=== PATIENT | male | born 1955 | race Caucasian/White ===

== ENCOUNTER 2016-10-13 06:57 | Day surgery (SDC) | payer BC ==
[2016-10-09 09:28] VITALS: BMI 27.9
[~2016-10-13 06:57] MED LIST: LACTATED RINGERS 1,000 ML IV SCH
[2016-10-13] MEDS ORDERED: LACTATED RINGERS 1,000 ML IV ONE (07:18)
[2016-10-13 07:20] VITALS: TEMP 97.1
[2016-10-13] MEDS ORDERED: LIDOCAINE 1% INJ 10MG/ML (20 ML MDV) ONE (07:48)
[2016-10-13] MEDS ORDERED: fentaNYL (PF) 50 MCG/ML 2 ML AMP ONE (07:48)
[2016-10-13] MEDS ORDERED: PROPOFOL 10 MG/ML 20 ML VIAL IV ONE (07:48)
[2016-10-13] MEDS ORDERED: MIDAZOLAM 2 MG/2 ML VIAL ONE (07:48)
--- NOTE | 2016-10-13 08:27 | P.PCN ---
Date of Procedure: 10/13/16 Procedure(s) Performed: Procedure: Total colonoscopy. Preoperative diagnosis: Screening for neoplasia, patient has history of polyps. Postoperative diagnosis: Exam within normal limits. Preparation: HalfLytely prep. Sedation: Was provided by anesthesia. Reflux clinical history: The patient is a 61-year-old male who is scheduled for this evaluation for screening for neoplasia because of history of polyps. His last exam was around 5 years ago. The patient has no abdominal complaints, bleeding or anemia. Procedure: With the patient on his left lateral decubitus position and after informed consent and adequate sedation, the perianal area was inspected and it did not show any fissures or fistulas. There were no masses felt on digital rectal examination. The Olympus CFQ 160L video colonoscope was then inserted in the rectum in the usual fashion and advanced to the cecum. The mucosa appeared healthy. No polyps or tumors were seen or any obvious diverticular disease. I retroflexed the endoscope in the rectum before the endoscope was withdrawn. The patient tolerated the procedure well. Plan: The patient was reassured. He will follow up with you as planned and I recommended repeat exam in 5 years.
[2016-10-13 08:28] VITALS: RESP 16
[2016-10-13 08:31] LABS: Glucose,Whole Blood 121 mg/dL (75-99)
[2016-10-13 08:58] VITALS: BP 101/72; PULSE 51
== END 2016-10-13 09:31 | disposition home or self-care (01) ==
LOC: ORWHC2ENDO 06:57
DX: Z12.11 Encounter for screening for malignant neoplasm of colon (principal); Z86.010 Personal history of colon polyps; N40.0 Benign prostatic hyperplasia without lower urinary tract symptoms; E78.5 Hyperlipidemia, unspecified; G47.33 Obstructive sleep apnea (adult) (pediatric); I49.9 Cardiac arrhythmia, unspecified; Z79.01 Long term (current) use of anticoagulants; Z79.899 Other long term (current) drug therapy
CPT/HCPCS: J2250; J2001; J3010; J2704; G0105

== ENCOUNTER 2019-04-20 10:21 | Emergency (ER) | payer BC ==
[2019-04-20 11:24] LABS: Basophils # (A) 0.1 k/uL (0-0.2); Basophils % (A) 1 %; Eosinophils # (A) 0.2 k/uL (0-0.7); Eosinophils % (A) 4 %; HCT 46.3 % (39.0-53.0); HGB 16.4 gm/dL (13.0-17.5); Lymphocytes # (A) 1.6 k/uL (1.0-4.8); Lymphocytes % (A) 29 %; MCH 30.5 pg (25.0-35.0); MCHC 35.3 g/dL (31.0-37.0); MCV 86.4 fL (80.0-100.0); Mean Platelet Volume 5.6; Monocytes # (A) 0.3 k/uL (0-1.0); Monocytes % (A) 6 %; Neutrophils # (A) 3.2 k/uL (1.3-7.7); Neutrophils % (A) 58 %; Platelet Count 283 k/uL (150-450); RBC 5.36 m/uL (4.30-5.90); RDW 12.1 % (11.5-15.5); WBC 5.5 k/uL (3.8-10.6)
--- NOTE | 2019-04-20 11:33 | ED ---
Recheck HPI - General Source: patient, RN notes reviewed Mode of arrival: wheelchair Limitations: no limitations <Tree Anguiano - Last Filed: 04/20/19 14:16> <Shannan Michelle - Last Filed: 04/21/19 12:27> - General Chief Complaint: Recheck/Abnormal Lab/Rx Stated Complaint: AFib Time Seen by Provider: 04/20/19 10:39 - History of Present Illness Initial Comments: This a 64-year-old male presents emergency Department from PCPs office chief complaint A. fib, dizziness. Patient states states been having some increasing dizziness states it's only with positional changes. Patient states that he is currently just gives with a usually resolves if he goes slowly. Patient states that he went to his PCPs office for a flu shot and told provider about his symptoms and which he didn't EKG. Patient found to be in A. fib with a heart rate of 103. Patient does have a history of A. fib but states that he has not been in A. fib for a long period of time. Patient states that on his last cardiology evaluation he was not in it though he still takes metoprolol and Eliquis. Patient states that at rest he is not having symptoms. He doesn't that he's had intermittent headaches. No chest pain no palpitations. (Tree Anguiano) - Related Data Home Medications Medication Instructions Recorded Confirmed Apixaban [Eliquis] 5 mg PO BID 10/09/16 04/20/19 Atorvastatin [Lipitor] 40 mg PO HS 10/09/16 04/20/19 Metoprolol Tartrate [Lopressor] 12.5 mg PO QAM 10/09/16 04/20/19 Tamsulosin [Flomax] 0.4 mg PO BID 10/09/16 04/20/19 Allergies Allergy/AdvReac Type Severity Reaction Status Date / Time No Known Allergies Allergy Verified 04/20/19 10:53 Review of Systems ROS Other: All systems not noted in ROS Statement are negative. <Tree Anguiano - Last Filed: 04/20/19 14:16> ROS Other: All systems not noted in ROS Statement are negative. <Shannan Michelle - Last Filed: 04/21/19 12:27> ROS Statement: Those systems with pertinent positive or pertinent negative responses have been documented in the HPI. Past Medical History Past Medical History: Atrial Fibrillation, Chest Pain / Angina, Hyperlipidemia, Prostate Disorder, Sleep Apnea/CPAP/BIPAP Additional Past Medical History / Comment(s): irregular heartbeat, no cpap used, hx paralytic ileus, "borderline diabetic"-diet control, History of Any Multi-Drug Resistant Organisms: None Reported Past Surgical History: Orthopedic Surgery Additional Past Surgical History / Comment(s): arthrsocopy rt knee, lasik eye surgery jeremías, cataract jeremías, left knee arthroscopy, jeremías shoulder surgery, Past Anesthesia/Blood Transfusion Reactions: No Reported Reaction Past Psychological History: No Psychological Hx Reported Smoking Status: Never smoker Past Alcohol Use History: Occasional Past Drug Use History: None Reported - Past Family History Father Family Medical History: Cancer <Tree Anguiano - Last Filed: 04/20/19 14:16> General Exam Limitations: no limitations General appearance: alert, in no apparent distress Head exam: Present: atraumatic, normocephalic, normal inspection Eye exam: Present: normal appearance, PERRL, EOMI. Absent: scleral icterus, conjunctival injection, periorbital swelling ENT exam: Present: normal exam, normal oropharynx, mucous membranes moist Neck exam: Present: normal inspection, full ROM. Absent: tenderness, meningismus, lymphadenopathy Respiratory exam: Present: normal lung sounds bilaterally. Absent: respiratory distress, wheezes, rales, rhonchi, stridor Cardiovascular Exam: Present: normal rhythm, irregular rhythm, normal heart sounds. Absent: regular rate, tachycardia, systolic murmur, diastolic murmur, rubs, gallop, clicks GI/Abdominal exam: Present: soft, normal bowel sounds. Absent: distended, tenderness, guarding, rebound, rigid Skin exam: Present: warm, dry, intact, normal color. Absent: rash <Tree Anguiano - Last Filed: 04/20/19 14:16> Course Vital Signs 04/20/19 04/20/19 04/20/19 10:32 11:20 11:30 Temperature 98.1 F Pulse Rate 99 106 H Respiratory 18 16 Rate Blood Pressure 94/62 121/72 121/72 O2 Sat by Pulse 95 94 L Oximetry 04/20/19 04/20/19 04/20/19 11:40 11:50 12:00 Temperature Pulse Rate 96 103 H 95 Respiratory 16 12 15 Rate Blood Pressure 104/79 104/79 104/79 O2 Sat by Pulse 94 L 96 95 Oximetry 04/20/19 04/20/19 04/20/19 12:10 12:20 12:30 Temperature Pulse Rate 96 105 H 98 Respiratory 5 L 5 L 20 Rate Blood Pressure 96/71 96/71 96/71 O2 Sat by Pulse 97 97 94 L Oximetry 04/20/19 04/20/19 04/20/19 13:00 13:30 14:00 Temperature Pulse Rate 86 96 98 Respiratory 16 17 16 Rate Blood Pressure 114/79 108/82 111/80 O2 Sat by Pulse 96 95 96 Oximetry 04/20/19 14:27 Temperature 98.6 F Pulse Rate Respiratory Rate Blood Pressure O2 Sat by Pulse Oximetry Medical Decision Making - Lab Data Result diagrams: 04/20/19 11:14 04/20/19 11:14 <Tree Anguiano - Last Filed: 04/20/19 14:16> - Lab Data Result diagrams: 04/20/19 11:14 04/20/19 11:14 <Shannan Michelle - Last Filed: 04/21/19 12:27> - Medical Decision Making Patient workup including labs, CT, EKG and CT interstitial concerns for right MCA aneurysm CTA was obtained I did discuss the case with radiologist who recommended cahto of Fernando this was ordered. Patient does have a swelling isn't 3-4 mm with no episodes of ruptured this is not causing his dizziness. Patient advised to follow-up with his PCP to referred to a neurosurgeon. 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 Patient is in A. fib and is anticoagulated and rate controlled. Patient will follow-up with his double needle stitcher return parameters discussed. (Tree Anguiano) I was available for consultation in the emergency department. The history and physical exam were done by the midlevel provider. I was consulted for this patients care. I reviewed the case with the midlevel provider and based on their presentation of the patient, I agree with the assessment, medical decision making and plan of care as documented. Chart was dictated using [employer] dictation software. Attempts were made to correct any dictation errors however some typographical errors may persist. (Shannan Michelle) - Lab Data Lab Results 04/20/19 04/20/19 04/20/19 Range/Units 11:14 11:14 11:14 WBC 5.5 (3.8-10.6) k/uL RBC 5.36 (4.30-5.90) m/uL Hgb 16.4 (13.0-17.5) gm/dL Hct 46.3 (39.0-53.0) % MCV 86.4 (80.0-100.0) fL MCH 30.5 (25.0-35.0) pg MCHC 35.3 (31.0-37.0) g/dL RDW 12.1 (11.5-15.5) % Plt Count 283 (150-450) k/uL Neutrophils % 58 % Lymphocytes % 29 % Monocytes % 6 % Eosinophils % 4 % Basophils % 1 % Neutrophils # 3.2 (1.3-7.7) k/uL Lymphocytes # 1.6 (1.0-4.8) k/uL Monocytes # 0.3 (0-1.0) k/uL Eosinophils # 0.2 (0-0.7) k/uL Basophils # 0.1 (0-0.2) k/uL Sodium 140 (137-145) mmol/L Potassium 4.3 (3.5-5.1) mmol/L Chloride 106 (98-107) mmol/L Carbon Dioxide 25 (22-30) mmol/L Anion Gap 9 mmol/L BUN 16 (9-20) mg/dL Creatinine 0.87 (0.66-1.25) mg/dL Est GFR (CKD-EPI)AfAm >90 (>60 ml/min/1.73 sqM) Est GFR (CKD-EPI)NonAf >90 (>60 ml/min/1.73 sqM) Glucose 205 H (74-99) mg/dL Calcium 9.8 (8.4-10.2) mg/dL Total Bilirubin 0.7 (0.2-1.3) mg/dL AST 23 (17-59) U/L ALT 31 (21-72) U/L Alkaline Phosphatase 64 (38-126) U/L Troponin I <0.012 (0.000-0.034) ng/mL Total Protein 7.2 (6.3-8.2) g/dL Albumin 4.2 (3.5-5.0) g/dL Disposition Is patient prescribed a controlled substance at d/c from ED?: No Time of Disposition: 14:17 <Tree Anguiano - Last Filed: 04/20/19 14:16> <Shannan Michelle - Last Filed: 04/21/19 12:27> Clinical Impression: Dizziness, Right internal carotid artery aneurysm, Afib Disposition: HOME SELF-CARE Condition: Stable Instructions (If sedation given, give patient instructions): Dizziness (ED) Additional Instructions: Follow-up with PCP and double needle stitcher. Please return to the Emergency Department if symptoms worsen or any other concerns. Referrals: Tierney Manley DO [Primary Care Provider] - 1-2 days
[2019-04-20 11:46] LABS: ALT 31 U/L (21-72); AST 23 U/L (17-59); African American GFR (CKD) >90 (>60 ml/min/1.73 sqM); Albumin 4.2 g/dL (3.5-5.0); Alkaline Phosphatase 64 U/L (38-126); Anion Gap 9 mmol/L; Blood Urea Nitrogen 16 mg/dL (9-20); Calcium 9.8 mg/dL (8.4-10.2); Carbon Dioxide 25 mmol/L (22-30); Chloride 106 mmol/L (98-107); Glucose 205 mg/dL (74-99); Potassium 4.3 mmol/L (3.5-5.1); Sodium 140 mmol/L (137-145); Total Bilirubin 0.7 mg/dL (0.2-1.3); Total Protein 7.2 g/dL (6.3-8.2)
--- NOTE | 2019-04-20 11:49 | CT ---
EXAMINATION TYPE: CT brain wo con DATE OF EXAM: 04/20/2019 COMPARISON: None HISTORY: A-fib, Dizziness CT DLP: 1095.4 mGycm Automated exposure control for dose reduction was used. TECHNIQUE: CT scan of the head is performed without contrast. FINDINGS: There is no acute intracranial hemorrhage or midline shift identified. There is diffuse v entricular and sulcal prominence consistent with diffuse age-related cerebral atrophy. There are a f ew patchy areas of hypoattenuation in the periventricular white matter most commonly related to chron ic small vessel ischemic change. Prominence of the right ICA terminus is seen on image 18, slightly h yperdense. This measures 5 mm. CTA brain as recommended for further evaluation. Atherosclerosis is no kanwal of the intracranial vasculature. The globes are intact and the visualized sinuses are clear. IMPRESSION: 1. Slight hyperdensity of a prominent ICA terminus measuring 5 mm on the right. CT is recommended to evaluate for aneurysm or and/or thrombus in this patient with atrial fibrillation. 2. No acute intracranial hemorrhage or midline shift.
--- NOTE | 2019-04-20 13:57 | CT ---
EXAMINATION TYPE: CT angio head neck DATE OF EXAM: 04/20/2019 HISTORY: Abnormal w/o scan. COMPARISON: CT brain same date CT DLP: 529.6 mGycm. Automated Exposure Control for Dose Reduction was Utilized. TECHNIQUE: CTA scan of the neck is performed with IV Contrast, patient injected with 65 mL of Isovue 370, axial images are obtained, coronal and sagittal reformatted images are reviewed. Three-D recons tructed images are created on an independent workstation and reviewed. FINDINGS: Carotid/Vascular Structures: At the level of abnormality described on prior CT brain there is a small aneurysm present measuring approximately 3 to 4 mm in size at the level of the internal carotid gareth ry terminal segment on the right. Vertebral arteries are patent. Transverse aorta, innominate, left and right common carotid, left and right subclavian arteries are p atent. Common carotid, internal and external carotid arteries are patent, there is no evident internal carot id artery stenosis. No evident dissection. Other: Degenerative disc changes are present in the visualized spine. There is multilevel foraminal e ncroachment. IMPRESSION: Right internal carotid artery aneurysm is noted.
[2019-04-20 14:09] VITALS: BP 111/80; PULSE 98; RESP 16
[2019-04-20 14:28] VITALS: TEMP 98.6
== END 2019-04-20 14:28 | disposition home or self-care (01) ==
LOC: EC 10:21
DX: I48.91 Unspecified atrial fibrillation (principal); I67.1 Cerebral aneurysm, nonruptured; E78.5 Hyperlipidemia, unspecified; I25.2 Old myocardial infarction; N42.9 Disorder of prostate, unspecified; Z79.01 Long term (current) use of anticoagulants; Z79.899 Other long term (current) drug therapy
CPT/HCPCS: 36415; 93005; 80053; 84484; 85025; 70496; 70450; 70498; 99284; Q9967

== ENCOUNTER 2019-09-15 07:09 | Day surgery (SDC) | payer BC ==
[2019-09-13 09:01] VITALS: BMI 29.0
[~2019-09-15 07:09] MED LIST changes: +LIDOCAINE 1% (10MG/ML) FOR IV START INTRADERMA PRN
[2019-09-15 07:27] VITALS: TEMP 97.4
[2019-09-15] MEDS ORDERED: LACTATED RINGERS 1,000 ML IV ONE ×2 (07:29)
[2019-09-15] MEDS ORDERED: PROPOFOL 10 MG/ML 20 ML VIAL IV ONE (07:35)
[2019-09-15] MEDS ORDERED: LIDOCAINE 1% INJ 10MG/ML (20 ML MDV) ONE (07:35)
--- NOTE | 2019-09-15 08:01 | P.PCN ---
Date of Procedure: 09/15/19 Description of Procedure: BRIEF HISTORY: Patient is a 64-year-old male presenting for outpatient evaluation with EGD for symptoms of dysphagia. Patient reports intermittent dysphagia and frequent episodes of hiccups which can be triggered by breads and other foods. PROCEDURE PERFORMED: Esophagogastroduodenoscopy with biopsy. PREOPERATIVE DIAGNOSIS: Dysphagia. ESTIMATED BLOOD LOSS: Minimal. IV sedation per anesthesia. PROCEDURE: After informed consent was obtained, the patient was brought into the endoscopy unit. IV sedation was administered by Anesthesia under continuous monitoring. Initially the Olympus GIF-190 video endoscope was inserted into the mouth. Esophagus intubated without any difficulty. It was gradually advanced into the stomach and duodenum and carefully examined. The bulb and the second part of the duodenum appeared normal, with biopsies taken. The scope at this time was withdrawn to the stomach, adequately insufflated with air, and upon careful examination, mucosa of the antrum, body, cardia and the fundus appeared normal, except for some mild scattered erythema in the antrum and body suggestive of mild gastritis with biopsies taken. The scope was then withdrawn into the esophagus. The GE junction was located at 43 cm from the incisors and appeared normal with biopsies taken. The esophagus appeared normal. There were no erosions or ulcerations seen and the patient tolerated the procedure well. IMPRESSION: 1. Mild gastritis antrum body, biopsied. 2. Biopsies of the duodenum and GE junction. RECOMMENDATIONS: The findings of this examination were discussed with the patient and his . Okay to resume diet. Okay to resume medications. Await pathology from biopsies. Follow up with primary care physician as previously scheduled.
[2019-09-15 08:12] VITALS: RESP 15
[2019-09-15 08:43] LABS: Glucose,Whole Blood 124 mg/dL (75-99)
[2019-09-15 09:13] VITALS: BP 125/74; PULSE 66
== END 2019-09-15 09:00 | disposition home or self-care (01) ==
LOC: ORWHC2ENDO 07:09
PROVIDERS: ATTEND Internal Medicine
DX: R06.6 Hiccough (principal); K29.50 Unspecified chronic gastritis without bleeding; R13.10 Dysphagia, unspecified; I48.91 Unspecified atrial fibrillation; I10 Essential (primary) hypertension; G47.33 Obstructive sleep apnea (adult) (pediatric); Z79.01 Long term (current) use of anticoagulants; Z79.899 Other long term (current) drug therapy
CPT/HCPCS: 88305; 43239; J2001; J2704

== ENCOUNTER → 2020-11-19 | Outpatient (CLI) | payer BC ==
--- NOTE | 2020-11-19 12:32 | FL ---
Modified barium swallow. HISTORY: Dysphagia. Modified barium swallow was performed with the department of speech pathology. The patient was prese nted with various consistencies of barium. There is no evidence for aspiration or penetration. Full report is to follow from the department of speech pathology. Impression: Normal study.
== END | disposition home or self-care (01) ==
LOC: RADFLMAIN 10:51
PROVIDERS: ATTEND Nurse Practitioner
DX: R13.10 Dysphagia, unspecified (principal)
CPT/HCPCS: 74230

== ENCOUNTER 2022-01-31 09:16 | Day surgery (SDC) | payer BC ==
[2022-01-30 14:31] VITALS: BMI 27.0
[2022-01-31 09:43] VITALS: TEMP 97.4
[2022-01-31 09:44] LABS: Glucose,Whole Blood 122 mg/dL (70-110)
[2022-01-31] MEDS ORDERED: LACTATED RINGERS 1,000 ML IV ONE ×2 (09:46)
[2022-01-31] MEDS ORDERED: PROPOFOL 10 MG/ML 20 ML VIAL IV ONE (10:18)
[2022-01-31] MEDS ORDERED: LIDOCAINE 2% INJ 20 MG/ML (2 ML VIAL) ONE (10:18)
--- NOTE | 2022-01-31 10:34 | P.PCN ---
Date of Procedure: 01/31/22 Procedure(s) Performed: BRIEF HISTORY: Patient is a 66-year-old pleasant white male scheduled for an elective colonoscopy as a part of a history of colon polyps. Last colonoscopy was 5 years ago. PROCEDURE PERFORMED: Colonoscopy. PREOPERATIVE DIAGNOSIS: History of colon polyps. IV sedation per Anesthesia. PROCEDURE: After informed consent was obtained, the patient, was brought into the endoscopy unit. IV sedation was administered by Anesthesia under continuous monitoring. Digital rectal examination was normal. Initially the Olympus CF-160 flexible video colonoscope was then inserted in the rectum, gradually advanced into the cecum without any difficulty. Careful examination was performed as the scope was gradually being withdrawn. Ileocecal valve and the appendiceal orifice were visualized and appeared normal. Prep was excellent. Mucosa of the cecum, ascending colon, transverse colon, descending colon, sigmoid colon, and rectum appeared normal. Retroflexion was performed in the rectum and no lesions were seen. The patient tolerated the procedure well. IMPRESSION: Normal-appearing colon from rectum to cecum with no evidence of colorectal neoplasia . Scattered sigmoid diverticulosis RECOMMENDATIONS: Findings of this examination were discussed with the patient as well as his family. He was advised to have a repeat screening colonoscopy in 10 years..
[2022-01-31 10:52] VITALS: BP 117/75; PULSE 50; RESP 16
== END 2022-01-31 11:29 | disposition home or self-care (01) ==
LOC: ORWHC2ENDO 09:16
PROVIDERS: ATTEND Internal Medicine Gastroenterology
DX: Z12.11 Encounter for screening for malignant neoplasm of colon (principal); K57.30 Diverticulosis of large intestine without perforation or abscess without bleeding; Z86.010 Personal history of colon polyps; I10 Essential (primary) hypertension; I48.91 Unspecified atrial fibrillation; E78.5 Hyperlipidemia, unspecified; G47.33 Obstructive sleep apnea (adult) (pediatric); E11.9 Type 2 diabetes mellitus without complications; M19.90 Unspecified osteoarthritis, unspecified site; K21.9 Gastro-esophageal reflux disease without esophagitis; I67.1 Cerebral aneurysm, nonruptured; Z79.84 Long term (current) use of oral hypoglycemic drugs; Z79.01 Long term (current) use of anticoagulants; Z79.899 Other long term (current) drug therapy
CPT/HCPCS: J2704; J2001; G0121; 45378

== ENCOUNTER → 2023-03-24 | Outpatient (CLI) | payer BC ==
[2023-03-24 16:25] LABS: African American GFR (CKD) >90 (>60 ml/min/1.73 sqM); Blood Urea Nitrogen 16 mg/dL (9-20); Non-African American GFR(CKD) >90 (>60 ml/min/1.73 sqM)
--- NOTE | 2023-03-25 09:36 | CT ---
EXAMINATION TYPE: CT chest w con DATE OF EXAM: 03/24/2023 COMPARISON: 09/10/2022 HISTORY: Pulmonary fibrosis, difficulty breathing since pneumonia 07/03 CT DLP: 418.9 mGycm Automated exposure control for dose reduction was used. CONTRAST: CT scan of the chest is performed with IV Contrast, patient injected with 100 cc mL of Isovue 300. FINDINGS: LUNGS: Stable granuloma superior segment left lower lobe. There is mild subpleural fibrosis seen at t he lung bases. No evidence of bronchiectasis or infiltrate. No pleural effusion or volume loss. MEDIASTINUM: There are no greater than 1 cm hilar or mediastinal lymph nodes. No pericardial effusi on is seen. Thoracic aorta is of normal caliber. The heart is not enlarged. UPPER ABDOMEN: No significant abnormality appreciated. OTHER: No additional significant abnormality is seen. IMPRESSION: 1 nonspecific basilar subpleural fibrosis. 2. Calcified granuloma left midlung zone.
== END | disposition home or self-care (01) ==
LOC: RADCTMAIN 15:30
PROVIDERS: ATTEND Internal Medicine Critical Care Medicine
DX: J84.10 Pulmonary fibrosis, unspecified (principal); J94.1 Fibrothorax
CPT/HCPCS: 82565; 84520; 71260; 36415; Q9967

== ENCOUNTER 2023-05-15 22:51 | Emergency (ER) | payer BC ==
[2023-05-15 23:14] VITALS: TEMP 98.2
[2023-05-16] MEDS ORDERED: AMPICILLIN-SULBACTAM 3 GM in SODIUM CHLORIDE 0.9% 100 ML IVPB STA (00:26)
[2023-05-16] MEDS ORDERED: HYDROmorphone 1 MG/ML 1 ML SYRINGE IVP STA ×2 (00:26→02:58)
[2023-05-16] MEDS ORDERED: GENTAMICIN 80 MG in SODIUM CHLORIDE 0.9% 100 ML IVPB ONE (00:51)
[2023-05-16] MEDS ORDERED: LIDOCAINE 1% INJ 10MG/ML (20 ML MDV) SQ ONE (00:55)
--- NOTE | 2023-05-16 01:24 | XR ---
EXAM: XR Left Hand Complete, 3 or More Views CLINICAL HISTORY: ITS.REASON XR Reason: 2nd finger injury TECHNIQUE: Frontal, lateral and oblique views of the left hand. COMPARISON: No previous studies. FINDINGS: Bones/joints: Rotary dislocation of the distal phalanx of the left index finger at the PIP joint. Mild to moderate osteoarthritic changes at the DIP and PIP joints. Moderate to severe osteoarthritic changes at the base of the left first carpal. No acute fracture. Soft tissues: A 0.2 cm linear foreign body within the soft tissues at the palmar aspect of the distal phalanx of the left fifth digit which requires clinical correlation. Extensive soft tissue swelling about the left index finger. Differential etiologies include cellulitis. Osteomyelitis cannot be excluded. IMPRESSION: 1. Rotary dislocation of the distal phalanx of the left index finger at the DIP joint. 2. Extensive soft tissue swelling about the left index finger. 3. Differential etiologies include bruising edema related to injury versus cellulitis. 4. Correlation is advised. 5. MRI imaging is advised to follow. 6. Small metallic foreign body within the soft tissues about the distal thighs of the left fifth digit. 7. Osteoarthritic changes.
--- NOTE | 2023-05-16 02:03 | XR ---
EXAM: XR Left Fingers, 2 or More Views CLINICAL HISTORY: ITS.REASON XR Reason: postreduction TECHNIQUE: Frontal, lateral and oblique views of the fingers of the left hand. COMPARISON: Earlier study of 05/15/2023. FINDINGS: Bones/joints: Rotary dislocation at the DIP joint of the left index finger has improved in position. Bony fragment is noted at the dorsal aspect the PIP joint left index finger suggestive of an avulsion injury, possibly acute. Soft tissues: Extensive soft tissue swelling about the left index finger. No radiopaque foreign body. IMPRESSION: 1. Improved anatomic position at the DIP joint left index finger. 2. Dorsal osseous fragment at the DIP joint worrisome for an acute/subacute avulsion injury. 3. Extensive soft tissue swelling about the left index finger. 4. MRI imaging is advised to follow-up for further correlation.
[2023-05-16] MEDS ORDERED: BACITRACIN OINT 1 EACH PACKET TOPICAL ONE (02:40)
[2023-05-16] MEDS ORDERED: DIPH,PERTUS(ACELL)TETVAC-LF 0.5 ML VIAL IM ONE (03:05)
--- NOTE | 2023-05-16 03:13 | ED ---
General Adult HPI - General Chief complaint: Extremity Injury, Upper Stated complaint: left hand injury Time Seen by Provider: 05/15/23 23:29 Source: patient Mode of arrival: ambulatory Limitations: no limitations - History of Present Illness Initial comments: 68-year-old male presenting to the ED with a chief complaint of finger injury. Patient states that he got his left second finger stuck between a magdi and a belt. No other injuries at this time. Tetanus within the last 10 years. No other complaints. - Related Data Home Medications Medication Instructions Recorded Confirmed Apixaban [Eliquis] 5 mg PO BID 10/09/16 01/31/22 Metoprolol Tartrate [Lopressor] 12.5 mg PO QAM 10/09/16 01/31/22 Tamsulosin [Flomax] 0.4 mg PO BID 10/09/16 01/31/22 Atorvastatin [Lipitor] 20 mg PO HS 09/13/19 01/31/22 Dutasteride [Avodart] 0.5 mg PO DAILY 01/30/22 01/31/22 Omeprazole [PriLOSEC] 20 mg PO BID 01/30/22 01/31/22 metFORMIN HCL 500 mg PO QAM 01/30/22 01/31/22 Previous Rx's Medication Instructions Recorded Cephalexin [Keflex] 500 mg PO Q6HR 7 Days #28 cap 05/16/23 HYDROcodone/APAP 10-325MG [[place] 1 tab PO Q6HR PRN 3 Days #12 tab 05/16/23 10-325] Allergies Allergy/AdvReac Type Severity Reaction Status Date / Time No Known Allergies Allergy Verified 05/15/23 22:59 Review of Systems ROS Statement: Those systems with pertinent positive or pertinent negative responses have been documented in the HPI. ROS Other: All systems not noted in ROS Statement are negative. Past Medical History Past Medical History: Atrial Fibrillation, Diabetes Mellitus, GERD/Reflux, Hyperlipidemia, Hypertension, Osteoarthritis (OA), Prostate Disorder, Sleep Apnea/CPAP/BIPAP Additional Past Medical History / Comment(s): no cpap used, hx paralytic ileus, , dx brain aneurysm, "borderline diabetic", History of Any Multi-Drug Resistant Organisms: None Reported Past Surgical History: Orthopedic Surgery Additional Past Surgical History / Comment(s): lasik eye surgery jeremías, cataract jeremías,jeremías knee arthroscopy, jeremías shoulder surgery, Past Anesthesia/Blood Transfusion Reactions: No Reported Reaction Past Psychological History: No Psychological Hx Reported Smoking Status: Never smoker Past Alcohol Use History: Occasional Past Drug Use History: None Reported - Past Family History Father Family Medical History: Cancer Additional Family Medical History / Comment(s): leukemia Mother Family Medical History: Deep Vein Thrombosis (DVT) General Exam Limitations: no limitations General appearance: alert, in no apparent distress Neck exam: Present: normal inspection Respiratory exam: Present: normal lung sounds bilaterally Cardiovascular Exam: Present: regular rate, normal rhythm GI/Abdominal exam: Present: soft Extremities exam: Present: other (left fifth finger has good sensation and good capillary refill distal. Obvious deformity at the tip of this finger. Avulsion of the skin overlying the DIP and PIP joint. Difficulty with flexing the finger) Course Vital Signs 05/15/23 22:59 Temperature 98.2 F Pulse Rate 69 Respiratory 18 Rate Blood Pressure 172/89 O2 Sat by Pulse 96 Oximetry Procedures - Laceration Laceration #1 Indication: laceration Site: upper extremity Size (cm): 7 Description: avulsion, irregular, contaminated Depth: involves muscle layer, involves tendon Anesthetic Used: lidocaine 1% Anesthesia Technique: local infiltration, nerve block Amount (mls): 5 Pre-repair: wound explored, irrigated extensively, extreme cleansing Type of Sutures: nylon Size of Sutures: 4-0 Number of Sutures: 15 Technique: simple, interrupted Patient Tolerated Procedure: well, no complications - Nerve Block Local Anesthetic Used: Lidocaine 1% Amount of anesthesia used: 3 Side: left Nerve Blocks: digital Patient Tolerated Procedure: well, no complications - Orthopedic Joint Reduction Joint #1 Side: left Analgesia: digital block Amount of Anesthetic Used (mLs): 3 Technique Used: direct manipulation Post-Reduction Neuro Exam: intact Post-Reduction Vascular Exam: intact Post Reduction X-Ray Obtained: Yes Post Reduction X-Ray Results: reduced Splint Applied: Yes Patient Tolerated Procedure: well, no complications Medical Decision Making - Medical Decision Making Was pt. sent in by a medical professional or institution (SHIVAM [place], VALVE AND REGULATOR REPAIRER, urgent care, hospital, or [facility]...) When possible be specific @ -No Did you speak to anyone other than the patient for history (EMS, parent, family, police, friend...)? What history was obtained from this source @ -No Did you review nursing and triage notes (agree or disagree)? Why? @ -I reviewed and agree with nursing and triage notes Were old charts reviewed (outside hosp., previous admission, EMS record, old EKG, old radiological studies, urgent care reports/EKG's, [facility] records)? Report findings @ -No old charts were reviewed Differential Diagnosis (chest pain, altered mental status, abdominal pain women, abdominal pain men, vaginal bleeding, weakness, fever, dyspnea, syncope, headache, dizziness, GI bleed, back pain, seizure, CVA, palpatations, mental health, musculoskeletal)? @ -Differential Musculoskeletal Muscular strain, contusion, ligament sprain, fracture, arthritis, septic arthritis, bursitis, cellulitis, muscle spasm, nerve compression, DVT, arterial occlusion, herpes zoster, electrolyte abnormality, tumor.... This is not meant to be in all inclusive list EKG interpreted by me (3pts min.). @ -None X-rays interpreted by me (1pt min.). @ -x-ray of the hand interpreted by me showing E dislocation of the distal phalanx of the left index finger at the DIP with extensive soft tissue swelling. Postreduction x-ray of the finger still shows a rotary dislocation however improved anatomic position compared to prior. Also a dorsal osseous fragment at the DIP joint. No other attempt at reduction was made however do feel that there is a fracture on seen by imaging at the distal finger at this time. Finger does appear more reduced in prior at this time. CT interpreted by me (1pt min.). @ -None done U/S interpreted by me (1pt. min.). @ -None done What testing was considered but not performed or refused? (CT, X-rays, U/S, labs)? Why? @ -None What meds were considered but not given or refused? Why? @ -None Did you discuss the management of the patient with other professionals (professionals i.e. , PA, VALVE AND REGULATOR REPAIRER, lab, RT, psych nurse, social group worker, precision dancer, teacher, donor relations officer, family caseworker)? Give summary @ -Spoke to Dr. Ramos of orthopedics. in agreement with IV antibiotics. At this time, recommends reduction@DIP with loose approximation of skin. Also updated tetanus and discharging patient home with antibiotics. Was smoking cessation discussed for >3mins.? @ -No Was critical care preformed (if so, how long)? @ -No Were there social determinants of health that impacted care today? How? (Homelessness, low income, unemployed, alcoholism, drug addiction, transportation, low edu. Level, literacy, decrease access to med. care, [facility], rehab)? @ -No Was there de-escalation of care discussed even if they declined (Discuss DNR or withdrawal of care, Hospice)? DNR status @ -No What co-morbidities impacted this encounter? (DM, HTN, Smoking, COPD, CAD, Cancer, CVA, ARF, Chemo, Hep., AIDS, mental health diagnosis, sleep apnea, morbid obesity)? @ -None Was patient admitted / discharged? Hospital course, mention meds given and route, prescriptions, significant lab abnormalities, going to OR and other per tinent info. @ -Discharge 68-year-old male presenting status post left index finger injury. X-rays as above. Patient had reduction of finger and wound repaired. Further details please see procedure notes. Discharged home in stable condition with prescriptions for Keflex and [place] and referral to see orthopedics. Discussed return precautions with patient who verbalizes agreement. Undiagnosed new problem with uncertain prognosis? @ -No Drug Therapy requiring intensive monitoring for toxicity (Heparin, Nitro, Insuli n, Cardizem)? @ -No Were any procedures done? @ -No Diagnosis/symptom? @ -Left index finger injury Acute, or Chronic, or Acute on Chronic? @ -Acute Uncomplicated (without systemic symptoms) or Complicated (systemic symptoms)? @ -Uncomplicated Side effects of treatment? @ -No Exacerbation, Progression, or Severe Exacerbation? @ -No Poses a threat to life or bodily function? How? (Chest pain, [place], [place], pneumonia, PE, COPD, DKA, ARF, appy, cholecystitis, CVA, Diverticulitis, Homicidal, Suicidal, threat to staff... and all critical care pts) @ -No Disposition Clinical Impression: Finger injury Disposition: HOME SELF-CARE Condition: Good Additional Instructions: Please return to the Emergency Department if symptoms worsen or any other concerns. Follow up with orthopedics. Prescriptions: Cephalexin [Keflex] 500 mg PO Q6HR 7 Days #28 cap HYDROcodone/APAP 10-325MG [[place] 10-325] 1 tab PO Q6HR PRN 3 Days #12 tab PRN Reason: Pain Is patient prescribed a controlled substance at d/c from ED?: No Referrals: Tierney Manley DO [Primary Care Provider] - 1-2 days Gonzalo Ramos DO [Doctor of Osteopathic Medicine] - 1-2 days Time of Disposition: 03:38
[2023-05-16 04:03] VITALS: BP 126/83; PULSE 55; RESP 16
== END 2023-05-16 03:56 | disposition home or self-care (01) ==
LOC: EC 22:51
DX: S63.291A Dislocation of distal interphalangeal joint of left index finger, initial encounter (principal); S61.211A Laceration without foreign body of left index finger without damage to nail, initial encounter; E11.9 Type 2 diabetes mellitus without complications; I10 Essential (primary) hypertension; I48.91 Unspecified atrial fibrillation; K21.9 Gastro-esophageal reflux disease without esophagitis; E78.5 Hyperlipidemia, unspecified; Z23 Encounter for immunization; Z79.84 Long term (current) use of oral hypoglycemic drugs; Z79.01 Long term (current) use of anticoagulants; Z79.899 Other long term (current) drug therapy; W23.0XXA Caught, crushed, jammed, or pinched between moving objects, initial encounter
CPT/HCPCS: 26770; 99283; 96365; 96367; 96366; 96375; 96376; 90471; 73130; 73140; 90715; J0690; J2001; J1580; J1170

== ENCOUNTER 2023-05-17 00:58 | Emergency (ER) | payer BC ==
[2023-05-17 01:07] VITALS: RESP 18; TEMP 98.3
[2023-05-17] MEDS ORDERED: HYDROmorphone 1 MG/ML 1 ML SYRINGE IM STA (01:24)
--- NOTE | 2023-05-17 01:35 | ED ---
General Adult HPI - General Chief complaint: Recheck/Abnormal Lab/Rx Stated complaint: follow up hand injury Time Seen by Provider: 05/17/23 01:47 EDT Source: patient Mode of arrival: ambulatory Limitations: no limitations - History of Present Illness Initial comments: 68-year-old male presenting to the ED with a chief complaint of finger pain. I saw the patient myself yesterday due to left second finger injury. At this time had dislocation@DIP with questionable avulsion fracture. Had duction and loose closure as recommended by Dr. Ramos of orthopedics. Discharged home with [facility]. Despite taking this, reports continued pain. States that he has been unable to sleep because of this pain. Other complaints at this time. Denies fever or chills. - Related Data Home Medications Medication Instructions Recorded Confirmed Apixaban [Eliquis] 5 mg PO BID 10/09/16 01/31/22 Metoprolol Tartrate [Lopressor] 12.5 mg PO QAM 10/09/16 01/31/22 Tamsulosin [Flomax] 0.4 mg PO BID 10/09/16 01/31/22 Atorvastatin [Lipitor] 20 mg PO HS 09/13/19 01/31/22 Dutasteride [Avodart] 0.5 mg PO DAILY 01/30/22 01/31/22 Omeprazole [PriLOSEC] 20 mg PO BID 01/30/22 01/31/22 metFORMIN HCL 500 mg PO QAM 01/30/22 01/31/22 Previous Rx's Medication Instructions Recorded Cephalexin [Keflex] 500 mg PO Q6HR 7 Days #28 cap 05/16/23 HYDROcodone/APAP 10-325MG [[place] 1 tab PO Q6HR PRN 3 Days #12 tab 05/16/23 10-325] Allergies Allergy/AdvReac Type Severity Reaction Status Date / Time No Known Allergies Allergy Verified 05/17/23 01:41 EDT Review of Systems ROS Statement: Those systems with pertinent positive or pertinent negative responses have been documented in the HPI. ROS Other: All systems not noted in ROS Statement are negative. Past Medical History Past Medical History: Atrial Fibrillation, Diabetes Mellitus, GERD/Reflux, Hyperlipidemia, Hypertension, Osteoarthritis (OA), Prostate Disorder, Sleep Apnea/CPAP/BIPAP Additional Past Medical History / Comment(s): no cpap used, hx paralytic ileus, , dx brain aneurysm, "borderline diabetic", History of Any Multi-Drug Resistant Organisms: None Reported Past Surgical History: Orthopedic Surgery Additional Past Surgical History / Comment(s): lasik eye surgery jeremías, cataract jeremías,jeremías knee arthroscopy, jeremías shoulder surgery, Past Anesthesia/Blood Transfusion Reactions: No Reported Reaction Past Psychological History: No Psychological Hx Reported Smoking Status: Never smoker Past Alcohol Use History: Occasional Past Drug Use History: None Reported - Past Family History Father Family Medical History: Cancer Additional Family Medical History / Comment(s): leukemia Mother Family Medical History: Deep Vein Thrombosis (DVT) General Exam Limitations: no limitations General appearance: alert, in no apparent distress Neck exam: Present: normal inspection Respiratory exam: Present: normal lung sounds bilaterally Cardiovascular Exam: Present: regular rate, normal rhythm GI/Abdominal exam: Present: soft Extremities exam: Present: other (Left upper extremity in a splint. Good strength and sensation. Sutures of the left 2md finger appear intact. Limited range of motion secondary to pain.) Skin exam: Present: warm, dry Course Vital Signs 05/17/23 05/17/23 05/17/23 01:39 EDT 02:39 03:12 Temperature 98.3 F Pulse Rate 63 61 60 Respiratory 18 18 18 Rate Blood Pressure 139/82 119/73 116/70 O2 Sat by Pulse 94 L 95 95 Oximetry Procedures - Orthopedic Joint Reduction Joint #1 Consent Obtained: verbal consent Joint Reduction Location: finger Analgesia: none Post Reduction X-Ray Results: reduced Splint Applied: Yes Patient Tolerated Procedure: well, no complications Medical Decision Making - Medical Decision Making Was pt. sent in by a medical professional or institution (SHIVAM [place], ASSISTANT PROSECUTING ATTORNEY, urgent care, hospital, or group home...) When possible be specific @ -No Did you speak to anyone other than the patient for history (EMS, parent, family, police, friend...)? What history was obtained from this source @ -No Did you review nursing and triage notes (agree or disagree)? Why? @ -I reviewed and agree with nursing and triage notes Were old charts reviewed (outside hosp., previous admission, EMS record, old EKG, old radiological studies, urgent care reports/EKG's, group home records)? Report findings @ -No old charts were reviewed Differential Diagnosis (chest pain, altered mental status, abdominal pain women, abdominal pain men, vaginal bleeding, weakness, fever, dyspnea, syncope, headache, dizziness, GI bleed, back pain, seizure, CVA, palpatations, mental health, musculoskeletal)? @ -Differential Musculoskeletal Muscular strain, contusion, ligament sprain, fracture, arthritis, septic arthritis, bursitis, cellulitis, muscle spasm, nerve compression, DVT, arterial occlusion, herpes zoster, electrolyte abnormality, tumor.... This is not meant to be in all inclusive list EKG interpreted by me (3pts min.). @ -None X-rays interpreted by me (1pt min.). @ -X-ray interpreted by me showing improved anatomy of prior dislocation@DIP joint. CT interpreted by me (1pt min.). @ -None done U/S interpreted by me (1pt. min.). @ -None done What testing was considered but not performed or refused? (CT, X-rays, U/S, labs)? Why? @ -None What meds were considered but not given or refused? Why? @ -None Did you discuss the management of the patient with other professionals (professionals i.e. , PA, ASSISTANT PROSECUTING ATTORNEY, lab, RT, psych nurse, social insurance analyst, news assignment editor, teacher, building drafting officer, gearcase assembler)? Give summary @ -No Was smoking cessation discussed for >3mins.? @ -No Was critical care preformed (if so, how long)? @ -No Were there social determinants of health that impacted care today? How? (Homelessness, low income, unemployed, alcoholism, drug addiction, transportation, low edu. Level, literacy, decrease access to med. care, long-term, rehab)? @ -No Was there de-escalation of care discussed even if they declined (Discuss DNR or withdrawal of care, Hospice)? DNR status @ -No What co-morbidities impacted this encounter? (DM, HTN, Smoking, COPD, CAD, Cancer, CVA, ARF, Chemo, Hep., AIDS, mental health diagnosis, sleep apnea, morbid obesity)? @ -None Was patient admitted / discharged? Hospital course, mention meds given and route, prescriptions, significant lab abnormalities, going to OR and other pertinent info. @ -Discharge 68-year-old male presenting to the ED with intractable pain from injury occurring yesterday. Patient was seen by me yesterday. Had x-ray at that time after getting his finger stuck between a magdi and about that showed dislocation@DIP with some avulsion fracture. This had partial reduction performed yesterday with significant improvement of pain however patient reports continuing pain today. Did attempt another reduction and patient reports significant improvement of pain after another attempt. At this time, patient reports that he does not want to wait for official radiology report and would like to go home as pain is well controlled. Patient discharged home in stable condition with instructions to follow with orthopedics. Discussed return precautions patient and family who verbalizes agreement. Undiagnosed new problem with uncertain prognosis? @ -No Drug Therapy requiring intensive monitoring for toxicity (Heparin, Nitro, Insulin, Cardizem)? @ -No Were any procedures done? @ -No Diagnosis/symptom? @ -Left index finger pain Acute, or Chronic, or Acute on Chronic? @ -Acute Uncomplicated (without systemic symptoms) or Complicated (systemic symptoms)? @ -Uncomplicated Side effects of treatment? @ -No Exacerbation, Progression, or Severe Exacerbation? @ -No Poses a threat to life or bodily function? How? (Chest pain, [place], [place], pneumonia, PE, COPD, DKA, ARF, appy, cholecystitis, CVA, Diverticulitis, Homicidal, Suicidal, threat to staff... and all critical care pts) @ -No Disposition Clinical Impression: Finger pain, left Disposition: HOME SELF-CARE Condition: Good Additional Instructions: Please return to the Emergency Department if symptoms worsen or any other concerns. Please follow-up with orthopedics. Is patient prescribed a controlled substance at d/c from ED?: No Referrals: Tierney Manley DO [Primary Care Provider] - 1-2 days Time of Disposition: 03:30
[2023-05-17] MEDS ORDERED: MORPHINE SULFATE 4 MG/ML SYRINGE IM STA (03:06)
[2023-05-17 03:17] VITALS: BP 116/70; PULSE 60
--- NOTE | 2023-05-17 05:13 | XR ---
EXAM: XR Left Fingers, 2 or More Views CLINICAL HISTORY: ITS.REASON XR Reason: left index finger TECHNIQUE: Frontal, lateral and oblique views of the fingers of the left hand. COMPARISON: No relevant prior studies available. FINDINGS: Bones/joints: Moderate to severe degenerative changes seen at the first carpometacarpal joint. Mild degenerative changes are seen along the second ray. No acute fracture. No dislocation. Soft tissues: 2.4 mm radiodense likely foreign body seen along the dorsal aspect of the finger at the level of the mid middle phalanx. IMPRESSION: 1. No evidence of fracture. 2. Question of a 2.4 mm foreign body seen within the second digit.
== END 2023-05-17 03:33 | disposition home or self-care (01) ==
LOC: EC 00:58
DX: M79.645 Pain in left finger(s) (principal); I48.91 Unspecified atrial fibrillation; K21.9 Gastro-esophageal reflux disease without esophagitis; E78.5 Hyperlipidemia, unspecified; I10 Essential (primary) hypertension; E11.36 Type 2 diabetes mellitus with diabetic cataract; Z79.01 Long term (current) use of anticoagulants; Z79.84 Long term (current) use of oral hypoglycemic drugs; Z79.899 Other long term (current) drug therapy
CPT/HCPCS: 73140; 26725; 96372 ×2; 99283; J2270; J1170